=== PATIENT | female | born 1965 | race Caucasian/White ===

== ENCOUNTER 2020-07-28 12:55 | Inpatient (IN) | payer MEDICARE, OTHER ==
[~2020-07-28] VITALS: Ht 165.1 cm; Wt 83.9 kg
--- NOTE | 2020-07-28 13:25 | NUR ---
RN-CO: Admitted a 55 year old female from [facility] in [facility]. Patient looks older than stated age. Per hold, patient was walking in the neighborhood, yelling and screaming and agitated. Upon arrival in the ER , she has a flight of ideas,was tangential and delusional about the president. Upon face to face interview with the patient, she stated that she is not suicidal but depressed. She stated she has visual hallucinations and auditory hallucinations like "humming birds." She is disorganized and has flight of ideas and the refused to answer most of the questions. However is alert and oriented x3-4. Her skin is intact, patient's rights was discussed to her and booklet was given. She said she is tired, closed her eyes and pretend she is sleeping. Dr Valencia was notified and gave admitting orders. Patient refused FLU and PNA vaccine.
[2020-07-28] MEDS ORDERED: MAGNESIUM HYDROXIDE 30 ML UDC PO PRN (13:30)
[2020-07-28] MEDS ORDERED: METF-442 PO (13:33)
[2020-07-28] MEDS ORDERED: INSU100V9 SQ (13:34)
[2020-07-28] MEDS: LORAZEPAM 0.5 MG TABLET PO PRN (14:47)
--- NOTE | 2020-07-28 15:20 | NUR ---
RN-CO: Patient was seen and examined by Dr Ortega and he said he will reconcile home meds.
[2020-07-28 16:00] VITALS: BP 118/60
[2020-07-28] MEDS ORDERED: BLOOD SUGAR DIAGNOSTIC 1 EACH STRIP IN ONE (16:30)
[2020-07-28] MEDS ORDERED: DEXTROSE 50%-WATER 50 ML DISP.SYRIN IV PRN (16:30)
[2020-07-28] MEDS: METFORMIN 500 MG TABLET PO SCH (16:46)
[2020-07-28] MEDS: BLOOD SUGAR DIAGNOSTIC 1 EACH STRIP IN SCH ×2 (17:30→22:00)
[2020-07-28 20:00] VITALS: BP 136/66
[2020-07-29] MEDS: BLOOD SUGAR DIAGNOSTIC 1 EACH STRIP IN SCH ×4 (07:30→21:09)
--- NOTE | 2020-07-29 07:41 | NUR ---
GPS RN NOTES PATIENT ASLEEP AND DOES NOT WANT TO BE TOUCHED. SHE REFUSES ACCU-CHECK AT THIS TIME.
[2020-07-29 08:00] VITALS: BP 144/91
[2020-07-29] MEDS: METFORMIN 500 MG TABLET PO SCH ×2 (08:47→16:28)
[2020-07-29] MEDS: INSULIN REGULAR, HUMAN 100 UNIT/ML 3 ML VIAL SQ PRN ×2 (12:07→21:10)
[2020-07-29] MEDS: BENZTROPINE MESYLATE (1 MG) 1 MG TABLET PO SCH ×2 (13:25→20:19)
[2020-07-29] MEDS: HALOPERIDOL 5 MG TABLET PO SCH ×2 (13:56→20:18)
[2020-07-29] MEDS: LORAZEPAM 0.5 MG TABLET PO PRN (14:06)
--- NOTE | 2020-07-29 14:06 | NUR ---
GPS RN NOTES PATIENT RESTLESS, AGITATED. PRN ATIVAN GIVEN.
[2020-07-29 16:00] VITALS: BP 143/76
--- NOTE | 2020-07-29 16:59 | NUR ---
GPS RN NOTES PATIENT REFUSES INSULIN ANYTHING BELOW 150. 1700 ACCU-CHECK WITH BS 133.
--- NOTE | 2020-07-29 18:34 | NUR ---
GPS RN NOTES PATIENT RESTING IN BED
--- NOTE | 2020-07-29 19:25 | NUR ---
RN NOTES, PATIENT IN BED ASLEEP, AROUSES TO VERBAL STIMULI, NO DISTRESS/DISRUPTIVE BEHAVIOR NOTED, WILL CONTINUE TO MONITOR CLOSELY.
[2020-07-29 20:00] VITALS: BP 127/61
--- NOTE | 2020-07-29 22:12 | NUR ---
RN NOTES, INFORMED PHILIP THAT PATIENT WITH EPISODES OF WATERY DIARRHEA, AND PATIENT REQUESTING MEDICATION, PER PHILIP TO COLLECT STOOL FOR C-DIFF BEFORE, AND IF NEGATIVE THEN WE CAN START IMODIUM FOR DIARRHEA, WILL COLLECT IF PATIENT WITH ANOTHER BOWEL MOVEMENT.
[2020-07-30] MEDS: ACETAMINOPHEN 325 MG TABLET PO PRN (00:54)
[2020-07-30] MEDS: TEMAZEPAM 7.5 MG CAPSULE PO PRN ×2 (01:44→21:28)
--- NOTE | 2020-07-30 06:43 | NUR ---
RN NOTES, PT IN ROOM AT THIS TIME, REFUSED BLOOD DRAWN AT THIS TIME, OTHERWISE NO SIGNIFICANT CHANGE IN CONDITION DURING MY SHIFT, WILL ENDORSE XONTINUITY OF CARE TO ONCOMING NURSE.
[2020-07-30] MEDS: BLOOD SUGAR DIAGNOSTIC 1 EACH STRIP IN SCH ×4 (07:25→21:43)
[2020-07-30 08:00] VITALS: BP 155/77
[2020-07-30] MEDS: BENZTROPINE MESYLATE (1 MG) 1 MG TABLET PO SCH ×2 (08:13→21:28)
[2020-07-30] MEDS: HALOPERIDOL 5 MG TABLET PO SCH ×2 (08:13→21:36)
[2020-07-30] MEDS: METFORMIN 500 MG TABLET PO SCH ×2 (08:13→17:00)
[2020-07-30] MEDS: LORAZEPAM 0.5 MG TABLET PO PRN (09:54)
[2020-07-30 16:00] VITALS: BP 151/90
--- NOTE | 2020-07-30 16:16 | NUR ---
GPS HIGH SCALER: NOTES REFUSED BLOOD DRAW.
[2020-07-30 20:28] VITALS: BP 136/93
[2020-07-30] MEDS: INSULIN REGULAR, HUMAN 100 UNIT/ML 3 ML VIAL SQ PRN (21:48)
--- NOTE | 2020-07-31 06:54 | NUR ---
RN NOTES, REFUSED BLOOD DRAWN AT THIS TIME, PATIENT AWAKE MOST OF THE NIGHT, .RESTORIL GIVEN LAST NIGHT, NOT THAT MUCH EFFECT, PATIENT CONTINUE TALKING, LAUGHING AND SINGING, OTHERWISE NO CHANGE IN CONDITION, WILL ENDORSE CONTINUITY OF CARE TO ONCOMING NURSE,.
[2020-07-31 08:00] VITALS: BP 147/96
[2020-07-31] MEDS: BLOOD SUGAR DIAGNOSTIC 1 EACH STRIP IN SCH ×4 (08:18→22:53)
[2020-07-31] MEDS: HALOPERIDOL 5 MG TABLET PO SCH ×2 (08:41→21:24)
[2020-07-31] MEDS: BENZTROPINE MESYLATE (1 MG) 1 MG TABLET PO SCH ×2 (08:41→21:23)
[2020-07-31] MEDS: METFORMIN 500 MG TABLET PO SCH ×2 (08:42→17:20)
[2020-07-31] MEDS: INSULIN REGULAR, HUMAN 100 UNIT/ML 3 ML VIAL SQ PRN (08:45)
--- NOTE | 2020-07-31 12:11 | NUR ---
ACCUCHECK WAS DONE. BS 160 MG/DL. PT REFUSED INSULIN COVERAGE. WILL CONTINUE TO MONITOR FOR SAFETY.
[2020-07-31 16:00] VITALS: BP 130/86
--- NOTE | 2020-07-31 16:36 | NUR ---
Point of Contact: SANIYA called Grace ([phone]) as she was listed on the pts face sheet. Grace stated that she has a board and care that the pt used to reside in for years in the [facility]. She stated that she knows the pt well and that she is concerned about her hospitalization. She stated that she would like to be involved and would like her to be discharged to her care if a locked care home facility cannot be secured. SANIYA stated that she will keep her updated.
--- NOTE | 2020-07-31 17:11 | NUR ---
Initial Discharge Plan: Pt currently is homeless and will require placement in a locked facility. SW will work with the pt and the pts MD regarding appropriate discharge planning. SW will form a safe and proper discharge plan.
--- NOTE | 2020-07-31 17:21 | NUR ---
ACCUCHECK WAS DONE. BS 148 MG/DL. PT REFUSED INSULIN COVERAGE. WILL CONTINUE TO MONITOR FOR SAFETY.
[2020-07-31 20:03] VITALS: BP 132/82
[2020-07-31] MEDS: TEMAZEPAM 7.5 MG CAPSULE PO PRN (22:23)
[2020-08-01 08:00] VITALS: BP 139/79
[2020-08-01] MEDS: BLOOD SUGAR DIAGNOSTIC 1 EACH STRIP IN SCH ×4 (08:14→21:39)
[2020-08-01] MEDS: INSULIN REGULAR, HUMAN 100 UNIT/ML 3 ML VIAL SQ PRN (08:17)
[2020-08-01] MEDS: BENZTROPINE MESYLATE (1 MG) 1 MG TABLET PO SCH ×2 (08:30→21:25)
[2020-08-01] MEDS: METFORMIN 500 MG TABLET PO SCH ×2 (08:30→16:34)
[2020-08-01] MEDS: HALOPERIDOL 5 MG TABLET PO SCH ×3 (08:30→21:25)
[2020-08-01] MEDS: LORAZEPAM 0.5 MG TABLET PO PRN ×2 (08:32→16:34)
[2020-08-01] MEDS: ACETAMINOPHEN 325 MG TABLET PO PRN ×2 (08:33→16:34)
--- NOTE | 2020-08-01 11:51 | NUR ---
PT SLEEPING AND REFUSED TO HAVE BLOOD SUGAR CHECK.
[2020-08-01 16:00] VITALS: BP 127/75
--- NOTE | 2020-08-01 19:30 | NUR ---
GPS RN NOTE, RECEIVED PATIENT AWAKE AND IN BED, NO S/S OR COMPLAINTS OF PAIN AT THIS TIME. PATIENT IS DISPLAYING NO S/S OF APPARENT DISTRESS AT THIS TIME. PATIENT BREATHING IS UNLABORED WITH EQUAL RISE AND FALL OF THE CHEST. PATIENT IS ALERT AND ORIENTED X 2 ON ROOM AIR. PATIENT IS COMPLIANT WITH MEDICATIONS, ANXIOUS AT TIMES, LAUGHING UNCONTROLLABLY WHILE RESPONDING TO INTERNAL STIMULI, AND UNCOOPERATIVE. PATIENT DENIES SUICIDAL AND HOMICIDAL IDEATIONS AT THIS TIME. PATIENT ASSISTED WITH TURNING AND REPOSITIONING Q2HR AND PRN FOR COMFORT AND CIRCULATION. PATIENT HAS NO NEEDS AT THIS TIME. PATIENT EDUCATED ON THE USE OF THE CALL ALMODOVAR. PATIENT BED SIDE RAILS UP X 2 FOR SAFETY. PATIENT BED IS LOCKED, LOW, WITH BED ALARM ON. WILL CONTINUE TO MONITOR THIS PATIENT Q15 MINUTES WITH THE HELP OF STAFF TO MAINTAIN SAFETY.
[2020-08-01 20:45] VITALS: BP 142/59
--- NOTE | 2020-08-01 21:39 | NUR ---
GPS RN NOTE, PATIENT REFUSED ACCU CHECK. OFFERED TO PERFORM ACCU CHECK THREE TIMES AND STILL PATIENT REFUSED STATING, " I REFUSE AND I DON'T NEED IT ". EDUCATED PATIENT ON THE RISKS AND BENEFITS OF CHECKING BLOOD SUGAR. WILL CONTINUE TO MONITOR THIS PATIENT WITH THE HELP OF STAFF.
[2020-08-02] MEDS: LORAZEPAM 0.5 MG TABLET PO PRN ×2 (03:22→19:39)
--- NOTE | 2020-08-02 03:22 | NUR ---
GPS RN NOTE, PATIENT HAS A COMPLAINT OF FEELING ANXIOUS AND IS REQUESTING ATIVAN AT THIS TIME. PATIENT VITAL SIGNS ARE STABLE. GAVE ATIVAN 0.5MG PO Q6HR PRN ORDERED. WILL REASSESS FOR ANXIETY AND I WILL CONTINUE TO MONITOR THIS PATIENT WITH THE HELP OF STAFF.
[2020-08-02] MEDS: BLOOD SUGAR DIAGNOSTIC 1 EACH STRIP IN SCH ×4 (07:30→21:47)
[2020-08-02 08:00] VITALS: BP 120/61
[2020-08-02] MEDS: HALOPERIDOL 5 MG TABLET PO SCH ×3 (08:00→21:38)
[2020-08-02] MEDS: BENZTROPINE MESYLATE (1 MG) 1 MG TABLET PO SCH ×2 (08:24→20:03)
[2020-08-02] MEDS: METFORMIN 500 MG TABLET PO SCH ×2 (08:24→17:03)
--- NOTE | 2020-08-02 08:31 | NUR ---
GPS RN NOTES PATIENT REFUSED ALL HER MORNING MEDS AND ACCU-CHECK. OFFERED A FEW TIMES; PATIENT SCREAMING SHE HAS THE RIGHT TO REFUSE AND IF SHE HAS TO TAKE A SHOT SHE WILL BUT SHE WILL NOT TAKE HER MEDS. EDUCATED PATIENT ON THE RISKS AND BENEFITS OF NOT TAKING HER MEDS. WILL CONTINUE TO MONITOR PATIENT.
--- NOTE | 2020-08-02 11:31 | NUR ---
Probable Cause Hearing: Pts [phone] hold was upheld for grave disability.
[2020-08-02] MEDS: OXCARBAZEPINE 150 MG TABLET PO SCH ×2 (14:35→17:03)
[2020-08-02 16:00] VITALS: BP 127/72
[2020-08-02 20:28] VITALS: BP 136/76
--- NOTE | 2020-08-03 06:18 | NUR ---
GPS RN CLOSING NOTES: PATIENT LAYING ON BED, AWAKE, A/O X2. SLEPT 4 HR THIS SHIFT. MEDICATION COMPLIANT. NO S/S OF DISTRESS. RESPIRATION EVEN AND UNLABORED WITH EQUAL RISE AND FALL OF THE CHEST ON ROOM AIR. SAFETY PRECAUTION MAINTAINED, BED IN LOWEST POSITION AND LOCKED. Q15 MINUTES SAFETY ROUND CONTINUED. ALL PATIENT CARE NEEDS MET ANTICIPATED. WILL CONTINUE TO MONITOR PATIENT FOR MOOD, BEHAVIOR AND SAFETY AND ENDORSE TO AM SHIFT.
[2020-08-03 08:00] VITALS: BP 134/73
[2020-08-03] MEDS: BLOOD SUGAR DIAGNOSTIC 1 EACH STRIP IN SCH ×4 (08:13→21:20)
[2020-08-03] MEDS: METFORMIN 500 MG TABLET PO SCH ×2 (08:38→17:45)
[2020-08-03] MEDS: BENZTROPINE MESYLATE (1 MG) 1 MG TABLET PO SCH ×2 (08:38→21:13)
[2020-08-03] MEDS: HALOPERIDOL 5 MG TABLET PO SCH ×3 (08:38→21:13)
[2020-08-03] MEDS: OXCARBAZEPINE 150 MG TABLET PO SCH ×3 (08:38→17:45)
[2020-08-03] MEDS: LORAZEPAM 0.5 MG TABLET PO PRN ×2 (08:58→15:39)
--- NOTE | 2020-08-03 08:58 | NUR ---
PATIENT GIVEN ATIVAN PO DUE TO RESTLESSNESS, AGITATION, AND RUNNING AROUND THE UNIT
[2020-08-03 12:00] LABS: BILIRUBIN,URINE NEGATIVE (NEGATIVE); COLOR,URINE YELLOW (YELLOW); LEUKOCYTE ESTERASE ,URINE NEGATIVE (NEGATIVE); NITRITE, URINE NEGATIVE (NEGATIVE); PROTEIN,URINE NEGATIVE (NEGATIVE); UGLUCOSE NEGATIVE (NEGATIVE); UROBILINOGEN,URINE 0.2 EU/dL (0.2)
[2020-08-03 12:26] LABS: BACTERIA,URINE Few /HPF (None Seen); RBC,URINE NONE SEEN /HPF (0-2); SQUAMOUS EPITHELIAL CELL,UR Many /HPF (None Seen); URINE AMORPHOUS URATE Moderate /HPF (None Seen); WBC,URINE 0-2 /HPF (0-3)
--- NOTE | 2020-08-03 12:49 | NUR ---
PT BS CHECKED AT 155, PATIENT REFUSES INSULIN COVERAGE
--- NOTE | 2020-08-03 15:39 | NUR ---
ATIVAN 0.5 MG GIVEN FOR RESTLESSNESS, PT STATES SHE HAS ANXIETY; TO DRAW BLOOD FOR LABS WHEN PATIENT IS CALMER
[2020-08-03 16:00] VITALS: BP 149/93
--- NOTE | 2020-08-03 16:21 | NUR ---
PT REFUSED THE BLOOD DRAW, VERY AGITATED TOWARDS STAFF DESPITE ATIVAN GIVEN.
[2020-08-03 20:55] VITALS: BP 143/67
[2020-08-03] MEDS: TEMAZEPAM 7.5 MG CAPSULE PO PRN (22:19)
[2020-08-04] MEDS: BLOOD SUGAR DIAGNOSTIC 1 EACH STRIP IN SCH ×4 (07:32→21:31)
[2020-08-04] MEDS: INSULIN REGULAR, HUMAN 100 UNIT/ML 3 ML VIAL SQ PRN ×3 (07:33→17:14)
[2020-08-04 08:00] VITALS: BP 122/85
[2020-08-04] MEDS: METFORMIN 500 MG TABLET PO SCH ×2 (08:07→17:10)
[2020-08-04] MEDS: BENZTROPINE MESYLATE (1 MG) 1 MG TABLET PO SCH ×2 (08:07→21:20)
[2020-08-04] MEDS: OXCARBAZEPINE 150 MG TABLET PO SCH ×3 (08:07→17:10)
[2020-08-04] MEDS: HALOPERIDOL 5 MG TABLET PO SCH ×3 (08:07→21:20)
[2020-08-04 16:00] VITALS: BP 117/56
--- NOTE | 2020-08-04 17:14 | NUR ---
RN NOTES PT NOTED WITH BLOOD SUGAR OF 178MG/DL. REFUSED REGULAR INSULIN COVERAGE STATED "IT'S NOT HIGH ENOUGH FOR ME TO GET INSULIN VIA SQ. WILL CONTINUE TO MONITOR.
[2020-08-04 19:58] VITALS: BP 134/66
[2020-08-05] MEDS: TEMAZEPAM 7.5 MG CAPSULE PO PRN (01:45)
[2020-08-05] MEDS: BLOOD SUGAR DIAGNOSTIC 1 EACH STRIP IN SCH ×4 (07:30→22:00)
[2020-08-05 08:00] VITALS: BP 122/58
[2020-08-05] MEDS: METFORMIN 500 MG TABLET PO SCH ×2 (08:53→17:20)
[2020-08-05] MEDS: HALOPERIDOL 5 MG TABLET PO SCH ×3 (08:54→21:15)
[2020-08-05] MEDS: BENZTROPINE MESYLATE (1 MG) 1 MG TABLET PO SCH ×2 (08:54→21:15)
[2020-08-05] MEDS: OXCARBAZEPINE 150 MG TABLET PO SCH ×3 (08:54→17:20)
--- NOTE | 2020-08-05 14:23 | NUR ---
SNF Referral: SANIYA faxed a referral to [facility] with attn to DHAVAL and Dayron to the fax number: [phone].
[2020-08-05 16:00] VITALS: BP 129/84
--- NOTE | 2020-08-05 18:39 | NUR ---
RN NOTE PATIENT UP AND OUT OF BED FOR MOST OF THE DAY. PATIENT SOCIALIZING AND ENGAGING IN GROUP ACTIVITIES. PATIENT WITH S/S OF MANIC EPISODE. PATIENT EATING 100% OF HER MEALS. PATIENT WITH NO S/S OF HARM TO SELF OR OTHERS. END RN NOTE. BN
[2020-08-05] MEDS: INSULIN REGULAR, HUMAN 100 UNIT/ML 3 ML VIAL SQ PRN (19:26)
[2020-08-05 20:01] VITALS: BP 133/73
[2020-08-06] MEDS: LORAZEPAM 0.5 MG TABLET PO PRN (05:44)
[2020-08-06] MEDS: BLOOD SUGAR DIAGNOSTIC 1 EACH STRIP IN SCH ×4 (07:30→21:18)
[2020-08-06 08:00] VITALS: BP 120/58
--- NOTE | 2020-08-06 08:10 | NUR ---
PT AWAKE AND WALKING-BLOOD SUGAR DONE-PT REFUSES COVERAGE-MEDS TAKEN
[2020-08-06] MEDS: BENZTROPINE MESYLATE (1 MG) 1 MG TABLET PO SCH ×2 (09:41→21:16)
[2020-08-06] MEDS: METFORMIN 500 MG TABLET PO SCH ×2 (09:41→16:35)
[2020-08-06] MEDS: HALOPERIDOL 5 MG TABLET PO SCH ×3 (09:42→21:16)
[2020-08-06] MEDS: OXCARBAZEPINE 150 MG TABLET PO SCH ×2 (09:42→16:35)
--- NOTE | 2020-08-06 12:00 | NUR ---
PT REFUSED TO HAVE BLOOD SUGAR CHECKED-IMPLIES THAT SHE'S BEING PERSECUTED AND THAT SHE KNOWS RIGHTS-RN LISTEN AND CALMLYADVISED NOT A PROBLEM-PT ALREADY AT LUNCH
[2020-08-06 16:00] VITALS: BP 145/87
--- NOTE | 2020-08-06 18:08 | NUR ---
pt still refuses to have blood sugar done- but does take medications-increased calmness-discussed need for having sugar done-still refuses
[2020-08-06 20:00] VITALS: BP 104/50
--- NOTE | 2020-08-06 21:55 | NUR ---
PATIENT RESTING IN BED, REFUSED BLOOD SUGAR CHECK STATES IT MAKES NO DIFFERENCE WHETHER IT IS HIGH OR LOW. PATIENT EDUCATED ON RISKS ASSOCIATED WITH NONCOMPLIANCE WITH DIABETIC MONITORING, STATES IT DOES NOT APPLY TO HER. PT COMPLIANT WITH SCHEDULED PO MEDICATIONS. WILL CONTINUE MONITORING CLOSELY.
[2020-08-06] MEDS ORDERED: AMLO-213 PO (22:40)
[2020-08-07] MEDS: MAG HYDROX/AL HYDROX/SIMETH 30 ML UDC PO PRN (02:36)
[2020-08-07] MEDS: BLOOD SUGAR DIAGNOSTIC 1 EACH STRIP IN SCH ×4 (07:53→21:52)
[2020-08-07] MEDS: INSULIN REGULAR, HUMAN 100 UNIT/ML 3 ML VIAL SQ PRN (07:53)
[2020-08-07 08:00] VITALS: BP 129/60
--- NOTE | 2020-08-07 08:00 | NUR ---
Blood sugar done -pt refuses to get insulin shot for sugar of 225-states she's not an insulin dependant diabetic and takes metformin
[2020-08-07] MEDS: METFORMIN 500 MG TABLET PO SCH ×2 (08:08→17:09)
[2020-08-07] MEDS: HALOPERIDOL 5 MG TABLET PO SCH ×3 (08:08→22:13)
[2020-08-07] MEDS: BENZTROPINE MESYLATE (1 MG) 1 MG TABLET PO SCH ×2 (08:08→21:00)
[2020-08-07] MEDS: OXCARBAZEPINE 150 MG TABLET PO SCH ×3 (08:08→17:09)
[2020-08-07] MEDS: LORAZEPAM 0.5 MG TABLET PO PRN (11:43)
[2020-08-07 16:00] VITALS: BP 105/61
--- NOTE | 2020-08-07 19:32 | NUR ---
PT RECEIVED IN BED AND APPEARS TO BE SLEEPING. RESPIRATIONS EVEN AND UNLABORED. NO S/S OF ACUTE DISTRESS. WILL CONTINUE TO MONITOR.
[2020-08-07 21:13] VITALS: BP 152/75
--- NOTE | 2020-08-08 07:02 | NUR ---
PT WAS VERY TALKATIVE AND AGREED TO ACCU CHECK. NO C/O PAIN. DENIES SI AND HI IDEATIONS
[2020-08-08] MEDS: BLOOD SUGAR DIAGNOSTIC 1 EACH STRIP IN SCH ×4 (07:30→22:00)
[2020-08-08 08:00] VITALS: BP 124/75
[2020-08-08] MEDS: OXCARBAZEPINE 150 MG TABLET PO SCH ×3 (08:52→17:40)
[2020-08-08] MEDS: METFORMIN 500 MG TABLET PO SCH ×2 (08:53→17:40)
[2020-08-08] MEDS: HALOPERIDOL 5 MG TABLET PO SCH ×3 (08:53→22:03)
[2020-08-08] MEDS: BENZTROPINE MESYLATE (1 MG) 1 MG TABLET PO SCH ×2 (09:00→21:01)
--- NOTE | 2020-08-08 10:17 | NUR ---
SNF Contact: DHAVAL ([phone]) from [facility] contacted the SW and stated that the pt was accepted to their facility.
--- NOTE | 2020-08-08 13:18 | NUR ---
Substance Abuse Intervention: SW made a third attempt and conducted a substance abuse intervention with the pt due to pts methamphetamine use.
[2020-08-08 16:00] VITALS: BP 120/58
[2020-08-08 20:47] VITALS: BP 117/61
--- NOTE | 2020-08-08 22:16 | NUR ---
GPS RN NOTE, REFUSED ACCU CHECK PATIENT REFUSED ACCU CHECK. OFFERED TO PERFORM ACCU CHECK THREE TIMES AND STILL PATIENT REFUSED ,EDUCATED PATIENT ON THE RISKS AND BENEFITS OF CHECKING BLOOD SUGAR. WILL CONTINUE TO MONITOR .
[2020-08-09] MEDS: BLOOD SUGAR DIAGNOSTIC 1 EACH STRIP IN SCH ×4 (07:30→22:00)
[2020-08-09 08:00] VITALS: BP 112/61
[2020-08-09] MEDS: OXCARBAZEPINE 150 MG TABLET PO SCH ×3 (09:43→16:48)
[2020-08-09] MEDS: BENZTROPINE MESYLATE (1 MG) 1 MG TABLET PO SCH ×2 (09:43→21:43)
[2020-08-09] MEDS: HALOPERIDOL 5 MG TABLET PO SCH ×3 (09:43→22:16)
[2020-08-09] MEDS: METFORMIN 500 MG TABLET PO SCH ×2 (09:44→16:48)
--- NOTE | 2020-08-09 15:15 | NUR ---
Individual Intervention: SW met with the pt in the hallway and informed her that she will be discharged on Wednesday to a nursing facility. Pt stated that she did not want to go to a nursing facility and stated that she wanted to go home. SW informed her that she is homeless and asked if that information is wrong and if she has a home. Pt was not able to provide an appropriate answer. SW will make another attempt to speak to the pt about her discharge on Wednesday.
[2020-08-09 16:00] VITALS: BP 126/99
--- NOTE | 2020-08-09 17:20 | NUR ---
RN NOTE PATIENT UP AND OUT OF BED FOR MOST OF THE DAY. PATIENT SOCIALIZING AND ENGAGING IN GROUP ACTIVITIES. PATIENT WITH S/S OF MANIC EPISODES, PATIENT APPEARED TO HAVE MULTIPLE HALLUCINATIONS THROUGHOUT THE DAY. PATIENT EATING 100% OF HER MEALS. PATIENT WITH NO S/S OF HARM TO SELF OR OTHERS. END RN NOTE. BN
[2020-08-09 20:00] VITALS: BP 139/81
[2020-08-09 20:36] VITALS: BP 139/81
--- NOTE | 2020-08-09 22:17 | NUR ---
GPS RN NOTE: REFUSED ACCU CHECK at 2200 PATIENT REFUSED ACCU CHECK THREE TIMES. EDUCATED PATIENT ON THE RISKS AND BENEFITS OF CHECKING BLOOD SUGAR BUT PATIENT IS PARANOID, TALKING TO HERSELF & STATED," I DON'T WANT TO TAKE A CHANCE, I REFUSE YOU TO GET MY BLOOD SUGAR CHECKED. WILL CONTINUE TO MONITOR.
[2020-08-10] MEDS: TEMAZEPAM 7.5 MG CAPSULE PO PRN (01:54)
--- NOTE | 2020-08-10 01:57 | NUR ---
RN NOTE: INSOMNIA PATIENT STATED THAT SHE IS UNABLE TO SLEEP AT THIS TIME & REQUESTED TO GET SLEEPING MEDICINE. PRN RESTORIL 7.5 MG 1 CAP PO GIVEN. WILL CONTINUE TO MONITOR.
--- NOTE | 2020-08-10 07:30 | NUR ---
RN NOTES PT AWAKE, WALKS ALONG THE HALLWAY WITH STEADY GAIT, TALKS TO HERSELF, COMPLIANT WITH MEDS, WILL CONTINUE TO MONITOR.
[2020-08-10] MEDS: BLOOD SUGAR DIAGNOSTIC 1 EACH STRIP IN SCH ×4 (07:50→21:16)
[2020-08-10] MEDS: BENZTROPINE MESYLATE (1 MG) 1 MG TABLET PO SCH ×2 (07:56→21:12)
[2020-08-10] MEDS: MAG HYDROX/AL HYDROX/SIMETH 30 ML UDC PO PRN (07:56)
[2020-08-10] MEDS: METFORMIN 500 MG TABLET PO SCH ×2 (07:57→16:09)
[2020-08-10] MEDS: HALOPERIDOL 5 MG TABLET PO SCH ×3 (07:57→21:12)
[2020-08-10] MEDS: OXCARBAZEPINE 150 MG TABLET PO SCH ×3 (07:59→16:09)
[2020-08-10 08:00] VITALS: BP 142/79
[2020-08-10 16:00] VITALS: BP 140/80
--- NOTE | 2020-08-10 18:10 | NUR ---
RN NOTES PT IN HER ROOM, AWAKE, ALERT AND VERBALLY RESPONSIVE, WITH EPISODES OF TALKING TO HERSELF AND SINGING, COMPLIANT WITH MEDS, WALKS ALONG THE HALLWAY AT TIMES, NOTED WITH GOOD APPETITE, BS CHECKED, NO S/S OF HYPO/HYPERGLYCEMIA, NEEDS ATTENDED.
[2020-08-10 20:31] VITALS: BP 122/59
--- NOTE | 2020-08-10 22:02 | NUR ---
PT RECEIVED ALERT AND ORIENTED X 3, ON ROOM AIR, RESTING IN HER BED, DENIES ANY PAIN AT THIS TIME, BREATHING IS UNLABORED. PT DENIES ANY SI/HI, HAS OCCASIONAL AUDITORY HALLUCINATIONS. PT IS GUARDED, COOPERATIVE, COMPLIANT WITH MEDICATIONS. PT HAS NO NEEDS AT THIS TIME. SIDE RAILS UP X2 FOR SAFETY, BED LOCKED AND IN LOWEST POSITION. WILL CONTINUE TO MONITOR Q15 MIN WITH THE HELP OF STAFF TO MAINTAIN SAFETY.
[2020-08-11 08:00] VITALS: BP 116/58
[2020-08-11] MEDS: HALOPERIDOL 5 MG TABLET PO SCH ×3 (08:31→21:03)
[2020-08-11] MEDS: METFORMIN 500 MG TABLET PO SCH ×2 (08:31→16:52)
[2020-08-11] MEDS: BENZTROPINE MESYLATE (1 MG) 1 MG TABLET PO SCH ×2 (08:32→20:50)
[2020-08-11] MEDS: OXCARBAZEPINE 150 MG TABLET PO SCH ×3 (08:32→16:52)
[2020-08-11] MEDS: BLOOD SUGAR DIAGNOSTIC 1 EACH STRIP IN SCH ×4 (08:57→21:04)
[2020-08-11] MEDS: INSULIN REGULAR, HUMAN 100 UNIT/ML 3 ML VIAL SQ PRN (12:40)
[2020-08-11 16:00] VITALS: BP 156/78
[2020-08-11 21:00] VITALS: BP 140/82
[2020-08-11] MEDS: ACETAMINOPHEN 325 MG TABLET PO PRN (22:27)
[2020-08-12] MEDS: BENZTROPINE MESYLATE (1 MG) 1 MG TABLET PO SCH ×2 (00:05→08:42)
[2020-08-12] MEDS: BLOOD SUGAR DIAGNOSTIC 1 EACH STRIP IN SCH ×4 (00:20→17:17)
[2020-08-12 08:00] VITALS: BP_SYST 100; BP_SYST 125; BP_DIAS 55; BP_DIAS 81
[2020-08-12] MEDS: METFORMIN 500 MG TABLET PO SCH ×2 (08:42→17:16)
[2020-08-12] MEDS: HALOPERIDOL 5 MG TABLET PO SCH ×2 (08:43→12:31)
[2020-08-12] MEDS: OXCARBAZEPINE 150 MG TABLET PO SCH ×3 (08:43→17:16)
[2020-08-12 16:00] VITALS: BP 100/55
[2020-08-12] MEDS: OXCARBAZEPINE 150 MG TABLET PO ONE ×2 (19:03→19:07)
--- NOTE | 2020-08-12 19:30 | NUR ---
PT RECEIVED IN BED, APPEARS TO BE SLEEPING. RESPIRATIONS EVEN AND UNLABORED. NO S/S OF ACUTE DISTRESS. WILL CONTINUE TO MONITOR.
[2020-08-12 20:11] VITALS: BP 103/46
[2020-08-13] MEDS: HALOPERIDOL 5 MG TABLET PO SCH ×3 (00:13→13:58)
--- NOTE | 2020-08-13 00:28 | NUR ---
PT IS AWAKE AND AGREES TO TAKE MEDS. HALDOL GIVEN ORDERED. BLOOD SUGAR 131. DENIES PAIN AND DISCOMFORT.
--- NOTE | 2020-08-13 06:53 | NUR ---
PT APPEARS TO BE SLEEPING IN THE BED MOST OF THE NIGHT AND NOW. RESPIRATIONS EVEN AND UNLABORED. NO S/S OF ACUTE DISTRESS
[2020-08-13] MEDS: BLOOD SUGAR DIAGNOSTIC 1 EACH STRIP IN SCH ×2 (07:30→12:00)
[2020-08-13 08:00] VITALS: BP 121/53
[2020-08-13] MEDS: METFORMIN 500 MG TABLET PO SCH (08:35)
[2020-08-13] MEDS: OXCARBAZEPINE 150 MG TABLET PO SCH ×2 (08:35→13:58)
[2020-08-13] MEDS: BENZTROPINE MESYLATE (1 MG) 1 MG TABLET PO SCH (08:36)
--- NOTE | 2020-08-13 12:17 | NUR ---
Discharge Note: Pt will be discharged to [facility] (SNF) located at [address] [place] [id number]; ([phone]). Pt will be transported via [facility] at 4PM. does not have anyone to inform about the pts discharge. Upon discharge, the pt appears to be in a euthymic mood and presented with a congruent affect. Pt appears to be alert and oriented x4 (time, place, self and situation). Pt denies both suicidal and homicidal ideation. Pt appears to respond to internal stimuli and have auditory hallucinations. Pt appears to be ambulatory with an unsteady gait. Pt appears to be well groomed and appropriately dressed. SANIYA provided patient with the 2019 [facility] Program list. SW provided patient with a copy of the [facility] homeless directory which provides information on locations for hot meals, sack lunches, food pantries, and showers. SANIYA provided an additional list of mental health clinics: [facility] [address] [place] [address] ([phone]); [facility] [address] [place] [address] ([phone]); a list of medical clinics; [facility] [address] [facility] [address], [place]. [place], ; [facility] [address] [facility] [address], [place]. SANIYA Provided [facility] [address] [place] [address]: ([phone]). Patient was provided with a brief substance abuse intervention and referred to the following substance abuse programs: [facility] Substance Abuse Self-helpline ([phone]); [facility] [address] [place] [address] ([phone]); [facility] [address] [facility] [address] ([phone]); [facility] ([phone]); [facility] ([phone]); [facility] ([phone]); [facility] ([phone]). Pt will continue to be under the care of psychiatrist, Dr. Valencia, located at located at [address] [place] [address], [place] [address]; . Pt will be under the care of channel sales director, Dr. Cox, located at [address] [place] [address]; . Pts homeless waiver, choice of vendor form, and multidisciplinary exit care form were done, printed, signed, and given to the patient.
[2020-08-13 16:00] VITALS: BP 128/64
--- NOTE | 2020-08-13 16:35 | NUR ---
RN NURSE PATIENT DISCHARGED TO [facility] (SNF) IN STABLE CONDITION. PATIENT DENIES HI/SI AND AUDITORY AND VISUAL HALLUCINATIONS. PATIENT DISCHARGE TEACHINGS GIVEN. PATIENT VERBALIZED HER UNDERSTANDING OF THE TEACHINGS. END RN NOTE. BN
[2020-08-13] MEDS ORDERED: OXCARBAZEPINE 150 MG TABLET PO SCH (17:00)
== END 2020-08-13 16:20 | DRG 885 ==
LOC: GPS 12:55
PROVIDERS: ADMIT Psychiatry & Neurology Psychosomatic Medicine; ATTEND Internal Medicine
DX: F20.9 Schizophrenia, unspecified (principal); E11.65 Type 2 diabetes mellitus with hyperglycemia; F17.210 Nicotine dependence, cigarettes, uncomplicated; Z20.822 Contact with and (suspected) exposure to COVID-19; G31.84 Mild cognitive impairment of uncertain or unknown etiology; F29 Unspecified psychosis not due to a substance or known physiological condition; Z73.6 Limitation of activities due to disability; F15.10 Other stimulant abuse, uncomplicated; Z59.0 Homelessness; Z91.14 Patient's other noncompliance with medication regimen; Z91.81 History of falling; Z68.30 Body mass index [BMI] 30.0-30.9, adult; E66.9 Obesity, unspecified; F32.9 Major depressive disorder, single episode, unspecified; F41.9 Anxiety disorder, unspecified; Z79.4 Long term (current) use of insulin
CPT/HCPCS: 81001; 82962-TC; 87081-TC; J1815

== ENCOUNTER 2020-10-06 11:55 | Inpatient (IN) | payer MEDICARE, OTHER ==
[~2020-10-06] VITALS: Ht 167.6 cm; Wt 83.0 kg
[~2020-10-06 11:55] MED LIST: AMLO-213 PO; INSU100V9 SQ; METF-442 PO
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
[2020-10-06] MEDS ORDERED: BISA10SU11 RC (12:24)
[2020-10-06] MEDS ORDERED: HALO5TAB PO (12:24)
[2020-10-06] MEDS ORDERED: LORA-259 PO (12:24)
[2020-10-06] MEDS ORDERED: OXCA300T4 PO (12:24)
[2020-10-06] MEDS ORDERED: ACET-868 PO (12:24)
[2020-10-06] MEDS ORDERED: HALO10TA13 PO (12:24)
[2020-10-06] MEDS ORDERED: NA P133E RC (12:24)
[2020-10-06] MEDS ORDERED: MAGN400O6 PO (12:24)
[2020-10-06] MEDS ORDERED: OLANZAPINE 5 MG TABLET PO ONE (12:30)
[2020-10-06] MEDS ORDERED: BENZ2TAB7 PO (12:40)
[2020-10-06 12:41] LABS: BILIRUBIN,URINE NEGATIVE (NEGATIVE); COLOR,URINE YELLOW (YELLOW); LEUKOCYTE ESTERASE ,URINE NEGATIVE (NEGATIVE); NITRITE, URINE NEGATIVE (NEGATIVE); PH,URINE 6.5 (5.0-8.0); PROTEIN,URINE NEGATIVE (NEGATIVE); UGLUCOSE NEGATIVE (NEGATIVE); UROBILINOGEN,URINE 0.2 EU/dL (0.2)
[2020-10-06 12:42] LABS: BASOPHILS # (AUTO) 0.1 /CMM (0.0-0.2); BASOPHILS % (AUTO) 0.5 % (0.0-2.0); EOSINOPHILS % (AUTO) 2.5 % (0.0-6.0); HEMATOCRIT 41 % (33-45); HEMOGLOBIN 13.4 g/dL (11.5-14.8); LYMPHOCYTES # (AUTO) 2.2 /CMM (0.8-4.8); MEAN CORPUSCULAR HGB CONC 33 g/dl (31.0-36.0); MEAN CORPUSCULAR VOLUME 85 fL (82-100); MONOCYTES # (AUTO) 0.8 /CMM (0.1-1.30); MONOCYTES % (AUTO) 7.7 % (2.0-12.0); NEUTROPHILS # (AUTO) 6.7 /CMM (1.8-8.9); NEUTROPHILS % (AUTO) 67.3 % (43.0-81.0); PLATELET COUNT (AUTO) 466 /CMM (150-450); RED BLOOD CELL COUNT(AUTO) 4.76 MIL/uL (4.0-5.2); WHITE BLOOD COUNT (AUTO) 9.9 K/uL (4.3-11.0)
[2020-10-06 13:08] LABS: ALANINE AMINOTRANSFERASE 23 U/L (12-78); ALBUMIN 4.4 g/dL (3.4-5.0); ALCOHOL, BLOOD < 3 mg/dL (0-0); ALKALINE PHOSPHATASE 93 U/L (46-116); ASPARTATE AMINOTRANSFERASE 12 U/L (15-37); BILIRUBIN,DIRECT 0.1 mg/dL (0.0-0.2); BILIRUBIN,TOTAL 0.1 mg/dL (0.2-1.0); CALCIUM, SERUM 10.4 mg/dL (8.5-10.1); CARBON DIOXIDE 30 mmol/L (21-32); CHLORIDE 100 mmol/L (98-107); CREATININE 0.7 mg/dL (0.6-1.3); GLUCOSE 119 mg/dL (74-106); POTASSIUM 4.2 mmol/L (3.5-5.1); SODIUM SERUM 137 mmol/L (136-145); TOTAL PROTEIN, SERUM 8.7 g/dL (6.4-8.2); UREA NITROGEN, BLOOD 14 mg/dL (7-18)
[2020-10-06 13:19] LABS: ACETAMINOPHEN 0 ug/ml (10-30)
[2020-10-06] MEDS ORDERED: OLANZAPINE 5 MG TABLET ONE (13:39)
--- NOTE | 2020-10-06 15:45 | NUR ---
KEILY CALLED FOR PSYCH EVAL. NO ETA GIVEN
--- NOTE | 2020-10-06 16:48 | NUR ---
ROOM 220B
--- NOTE | 2020-10-06 18:30 | NUR ---
AMIE Eli at bedside fro psyche eval
--- NOTE | 2020-10-06 19:16 | NUR ---
PLACED ON HOLD AT 1850
--- NOTE | 2020-10-06 19:39 | NUR ---
REPORT GIVEN TO AMIE LAZO FOR CINDY
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
[2020-10-06] MEDS ORDERED: DEXTROSE 50%-WATER 50 ML DISP.SYRIN IV PRN (20:30)
[2020-10-06] MEDS ORDERED: ACETAMINOPHEN 325 MG TABLET PO PRN (21:00)
[2020-10-06] MEDS ORDERED: BLOOD SUGAR DIAGNOSTIC 1 EACH STRIP IN ONE (21:00)
[2020-10-06] MEDS ORDERED: MAG HYDROX/AL HYDROX/SIMETH 30 ML UDC PO PRN (21:00)
[2020-10-06] MEDS: BLOOD SUGAR DIAGNOSTIC 1 EACH STRIP IN SCH (22:00)
[2020-10-07 08:00] VITALS: BP 152/73
[2020-10-07] MEDS: BLOOD SUGAR DIAGNOSTIC 1 EACH STRIP IN SCH ×4 (08:47→21:49)
[2020-10-07] MEDS: INSULIN REGULAR, HUMAN 100 UNIT/ML 3 ML VIAL SQ PRN ×3 (12:13→21:51)
[2020-10-07] MEDS: MAGNESIUM HYDROXIDE 30 ML UDC PO PRN (12:40)
--- NOTE | 2020-10-07 15:32 | NUR ---
SNF Contact: SW contacted CJ ([phone]) from [facility] who stated that the pt can be accepted back once stable.
--- NOTE | 2020-10-07 15:32 | NUR ---
Initial Discharge Plan: Pt currently resides at [facility] located at [address] [place] [address]; ([phone]). Per pt, she would like to return. SW will work with the pt and the MD regarding appropriate discharge planning. SW will form a safe and proper discharge.
[2020-10-07 16:00] VITALS: BP 123/67
[2020-10-07] MEDS: BENZTROPINE MESYLATE (1 MG) 1 MG TABLET PO SCH (17:09)
[2020-10-07] MEDS: OXCARBAZEPINE 150 MG TABLET PO SCH (17:25)
[2020-10-07] MEDS: HALOPERIDOL 5 MG TABLET PO SCH ×2 (17:26→22:00)
[2020-10-07 21:18] VITALS: BP 137/97
[2020-10-08] MEDS: BLOOD SUGAR DIAGNOSTIC 1 EACH STRIP IN SCH ×4 (07:05→22:23)
[2020-10-08] MEDS: INSULIN REGULAR, HUMAN 100 UNIT/ML 3 ML VIAL SQ PRN (07:07)
[2020-10-08 08:00] VITALS: BP 137/75
[2020-10-08] MEDS: OXCARBAZEPINE 150 MG TABLET PO SCH ×3 (08:19→16:25)
[2020-10-08] MEDS: HALOPERIDOL 5 MG TABLET PO SCH ×3 (08:19→21:31)
[2020-10-08] MEDS: BENZTROPINE MESYLATE (1 MG) 1 MG TABLET PO SCH ×2 (08:19→16:25)
[2020-10-08] MEDS: MAGNESIUM HYDROXIDE 30 ML UDC PO PRN (12:49)
--- NOTE | 2020-10-08 12:49 | NUR ---
RN NOTES: PT. C/O CONSTIPATIONS , MOM 30 ML PO PRN GIVEN PER PT. REQUEST, WILL CONTINUE TO MONITOR .
[2020-10-08 16:00] VITALS: BP 155/92
[2020-10-08 20:00] VITALS: BP 132/80
[2020-10-08] MEDS: LORAZEPAM 0.5 MG TABLET PO PRN (20:12)
--- NOTE | 2020-10-08 20:14 | NUR ---
GPS RN NOTES: PATIENT IS RESTLESS, PACING HALLWAY, LAUGHING INAPPROPRIATELY, RESPONDING TO INTERNAL STIMULI, TALKING TO SELF. ATIVAN 0.5MG, 2TABS/1MG GIVEN PO PRN AT 2011. WILL CONTINUE TO MONITOR.
[2020-10-08] MEDS: TEMAZEPAM 7.5 MG CAPSULE PO PRN (22:25)
--- NOTE | 2020-10-08 22:25 | NUR ---
GPS RN NOTES: PT. REQUESTED SLEEP MED D/T INSOMNIA. RESTORIL 7.5MG/1TAB GIVEN PO PRN ORDERED AT 2225. WILL CONTINUE TO MONITOR.
--- NOTE | 2020-10-09 06:46 | NUR ---
GPS RN CLOSING NOTES: PATIENT IS LAYING COMFORTABLY IN BED SLEEPING. PATIENT SLEPT 6HRS THIS SHIFT. MED COMPLIANT THIS SHIFT. NO S/S OF DISTRESS. RESPIRATION EVEN AND UNLABORED WITH EQUAL RISE AND FALL OF THE CHEST ON ROOM AIR. ALL PATIENT CARE NEEDS HAVE BEEN MET ANTICIPATED. BED IN LOWEST POSITION AND LOCKED. WILL CONTINUE TO MONITOR FOR SAFETY, MOOD AND BEHAVIOR AND ENDORSE TO AM SHIFT.
[2020-10-09] MEDS: BLOOD SUGAR DIAGNOSTIC 1 EACH STRIP IN SCH ×4 (07:20→22:20)
[2020-10-09 08:00] VITALS: BP 139/77
[2020-10-09] MEDS: HALOPERIDOL 5 MG TABLET PO SCH ×3 (08:27→21:26)
[2020-10-09] MEDS: BENZTROPINE MESYLATE (1 MG) 1 MG TABLET PO SCH ×2 (08:27→16:36)
[2020-10-09] MEDS: OXCARBAZEPINE 150 MG TABLET PO SCH ×3 (08:27→16:36)
--- NOTE | 2020-10-09 09:00 | NUR ---
PT ALERT LAUGHING INAPPROPRIATELY, RESPONDING TO INTERNAL STIMULUS, +AH, +VH, GESTURING TO CARRERA AND OBVIOUSLY RESPONDING AND SPEAKING IN ROOM ALONE. PO INTAKE FAIR, MED COMPLIANT
[2020-10-09] MEDS: INSULIN REGULAR, HUMAN 100 UNIT/ML 3 ML VIAL SQ PRN (13:20)
[2020-10-09 16:00] VITALS: BP 154/86
--- NOTE | 2020-10-09 17:50 | NUR ---
RN NOTE- ACCU CHECK / BS- 163. PT REFUSING SSI
[2020-10-09] MEDS: LORAZEPAM 0.5 MG TABLET PO PRN (20:20)
--- NOTE | 2020-10-09 20:27 | NUR ---
GPS RN NOTES: PATIENT IS RESTLESS, ANXIOUS, PACING HALLWAY, LAUGHING INAPPROPRIATELY, RESPONDING TO INTERNAL STIMULI, TALKING TO SELF. ATIVAN 0.5MG, 2TABS/1MG GIVEN PO PRN AT 2019. WILL CONTINUE TO MONITOR.
[2020-10-09 20:28] VITALS: BP 154/90
[2020-10-09] MEDS: TEMAZEPAM 7.5 MG CAPSULE PO PRN (21:57)
--- NOTE | 2020-10-09 21:58 | NUR ---
GPS RN NOTES: PT. REQUESTED SLEEP MED D/T INSOMNIA. RESTORIL 7.5MG/1TAB GIVEN PO PRN ORDERED AT 2157 WILL CONTINUE TO MONITOR.
--- NOTE | 2020-10-10 06:39 | NUR ---
GPS RN CLOSING NOTES: PATIENT IS CURRENTLY SLEEPING COMFORTABLY. PATIENT SLEPT 5HRS THIS SHIFT. MED COMPLIANT THIS SHIFT. NO S/S OF DISTRESS. RESPIRATION EVEN AND UNLABORED WITH EQUAL RISE AND FALL OF THE CHEST ON ROOM AIR. ALL PATIENT CARE NEEDS HAVE BEEN MET ANTICIPATED. BED IN LOWEST POSITION AND LOCKED WITH SIDE RAILS UP X2. WILL CONTINUE TO MONITOR AND ENDORSE TO AM SHIFT
[2020-10-10] MEDS: BLOOD SUGAR DIAGNOSTIC 1 EACH STRIP IN SCH ×4 (07:30→21:30)
[2020-10-10 08:00] VITALS: BP 158/91
[2020-10-10] MEDS: OXCARBAZEPINE 150 MG TABLET PO SCH ×3 (08:34→16:26)
[2020-10-10] MEDS: HALOPERIDOL 5 MG TABLET PO SCH ×3 (08:34→21:27)
[2020-10-10] MEDS: BENZTROPINE MESYLATE (1 MG) 1 MG TABLET PO SCH ×2 (08:34→16:27)
[2020-10-10] MEDS: INSULIN REGULAR, HUMAN 100 UNIT/ML 3 ML VIAL SQ PRN (11:15)
--- NOTE | 2020-10-10 13:38 | NUR ---
Group Note: SW encouraged the pt to attend group therapy on 10/10/20 at 1pm regarding the topic of discharge planning and the pt refused to attend. Pt was unable to attend due to being disorganized, tangential, and manic.
[2020-10-10 16:00] VITALS: BP 136/72
--- NOTE | 2020-10-10 17:08 | NUR ---
RN-CO: PATIENT REFUSED BLOOD SUGAR CHECK , SHE STATED " I TOLD YOU, I AM OT DIABETIC." ENC 3X BUT GOT AGITATED TO ME.
[2020-10-10 19:48] VITALS: BP 126/52
[2020-10-10 20:00] VITALS: BP 126/52
--- NOTE | 2020-10-10 22:20 | NUR ---
RN NOTE PATIENT'S BLOOD SUGAR IS 128 MG/DL. NO SLIDING SCALE COVERAGE NEEDED AT THIS TIME. SNACKS OFFERED & TOLERATED WELL BY THE PATIENT.
[2020-10-11 08:00] VITALS: BP 126/63
[2020-10-11] MEDS: BLOOD SUGAR DIAGNOSTIC 1 EACH STRIP IN SCH ×4 (08:09→21:19)
[2020-10-11] MEDS: HALOPERIDOL 5 MG TABLET PO SCH (08:40)
[2020-10-11] MEDS: OXCARBAZEPINE 150 MG TABLET PO SCH ×3 (08:40→16:00)
[2020-10-11] MEDS: BENZTROPINE MESYLATE (1 MG) 1 MG TABLET PO SCH ×2 (08:40→16:00)
--- NOTE | 2020-10-11 09:35 | NUR ---
GPS/RN-NOTES PATIENT COMPLAIN THAT SHE HAD HARD OF SWALLOWING HALDOL PILLS FOR PREVIOUS DAYS,DR. SHEA AT BEDSIDE AND WITH VERBAL ORDER TO CHANGE HALDOL ORDERS TO HALDOL CONCENTRATED. NOTED AND CARRIED OUT.
[2020-10-11] MEDS: LORAZEPAM 0.5 MG TABLET PO PRN (10:27)
--- NOTE | 2020-10-11 10:28 | NUR ---
GPS/RN-NOTES NOTED PATIENT PACING IN AND OUT HER ROOM,HYPERVERBAL TALKING AND LAUGHING TO SELF. ATIVAN 1MG P.O GIVEN PRN ORDER. WILL CONT. MONITORING FOR SAFETY AND BEHAVIOR.
--- NOTE | 2020-10-11 11:30 | NUR ---
GPS/RN-NOTES PATIENT IN THE DAY ROOM WATCHING TV,CALM,NO ACUTE DISTRESS NOTED.
[2020-10-11] MEDS: INSULIN REGULAR, HUMAN 100 UNIT/ML 3 ML VIAL SQ PRN ×3 (12:16→21:24)
[2020-10-11 16:00] VITALS: BP 143/86
[2020-10-11] MEDS: HALOPERIDOL LACTATE 10 MG/5 ML UDC PO SCH ×2 (16:01→21:13)
[2020-10-11 20:02] VITALS: BP 130/80
[2020-10-11] MEDS: TEMAZEPAM 7.5 MG CAPSULE PO PRN (21:57)
--- NOTE | 2020-10-11 21:57 | NUR ---
GPS-RN NOTE: INSOMNIA PATIENT C/O INABILITY TO SLEEP. PRN RESTORIL 7.5MG PO GIVEN. WILL CONTINUE TO MONITOR.
[2020-10-12 08:00] VITALS: BP 125/76
[2020-10-12] MEDS: BLOOD SUGAR DIAGNOSTIC 1 EACH STRIP IN SCH ×4 (08:08→22:00)
--- NOTE | 2020-10-12 08:10 | NUR ---
GPS RN NOTE PATIENTS BLOOD SUGAR IS 138, ACCORDING TO SLING SCALE 2 UNITS OF INSULIN IS DUE, PATIENT REFUSED, EDUCATED RISK, PATIENT STILL KEPT ON REFUSING.
[2020-10-12] MEDS: BENZTROPINE MESYLATE (1 MG) 1 MG TABLET PO SCH ×2 (08:40→16:37)
[2020-10-12] MEDS: HALOPERIDOL LACTATE 10 MG/5 ML UDC PO SCH ×3 (08:40→21:17)
[2020-10-12] MEDS: OXCARBAZEPINE 150 MG TABLET PO SCH ×3 (08:40→16:37)
--- NOTE | 2020-10-12 12:05 | NUR ---
GPS RN NOTE PATIENTS BLOOD SUGAR IS 151, ACCORDING TO SLIDING SCALE INSULIN IS DUE, PATIENT KEPT OF REFUSING INSULIN, EDUCATED PATIENT REGARDING BENEFITS, PATIENT KEPT ON REFUSING AGAIN.
[2020-10-12 16:03] VITALS: BP 139/69
[2020-10-12] MEDS: MAGNESIUM HYDROXIDE 30 ML UDC PO PRN (16:38)
[2020-10-12] MEDS: INSULIN REGULAR, HUMAN 100 UNIT/ML 3 ML VIAL SQ PRN ×2 (17:19→21:36)
[2020-10-12 21:01] VITALS: BP 129/59
[2020-10-13] MEDS: BLOOD SUGAR DIAGNOSTIC 1 EACH STRIP IN SCH ×4 (07:30→21:23)
[2020-10-13 08:00] VITALS: BP 147/91
[2020-10-13] MEDS: OXCARBAZEPINE 150 MG TABLET PO SCH ×3 (09:00→16:51)
[2020-10-13] MEDS: BENZTROPINE MESYLATE (1 MG) 1 MG TABLET PO SCH ×2 (09:09→16:51)
[2020-10-13] MEDS: HALOPERIDOL LACTATE 10 MG/5 ML UDC PO SCH ×3 (09:10→21:23)
--- NOTE | 2020-10-13 11:22 | NUR ---
RN-CO: BLOOD SUGAR AC LUNCH WAS 163, PT REFUSED COVERAGE.
[2020-10-13] MEDS: MAGNESIUM HYDROXIDE 30 ML UDC PO PRN ×2 (12:09→23:19)
[2020-10-13 16:00] VITALS: BP 126/78
[2020-10-13] MEDS: INSULIN REGULAR, HUMAN 100 UNIT/ML 3 ML VIAL SQ PRN ×2 (17:10→21:28)
[2020-10-13 20:00] VITALS: BP 156/78
[2020-10-14] MEDS: BLOOD SUGAR DIAGNOSTIC 1 EACH STRIP IN SCH ×4 (07:50→21:29)
[2020-10-14 08:00] VITALS: BP 132/57
[2020-10-14] MEDS: BENZTROPINE MESYLATE (1 MG) 1 MG TABLET PO SCH ×2 (08:29→17:18)
[2020-10-14] MEDS: HALOPERIDOL LACTATE 10 MG/5 ML UDC PO SCH ×3 (08:29→21:28)
[2020-10-14] MEDS: OXCARBAZEPINE 150 MG TABLET PO SCH ×3 (08:29→17:18)
[2020-10-14] MEDS: INSULIN REGULAR, HUMAN 100 UNIT/ML 3 ML VIAL SQ PRN ×2 (11:45→21:32)
[2020-10-14 16:00] VITALS: BP 126/52
[2020-10-14] MEDS: MAGNESIUM HYDROXIDE 30 ML UDC PO PRN (18:14)
[2020-10-14 20:00] VITALS: BP 132/70
[2020-10-15] MEDS: BLOOD SUGAR DIAGNOSTIC 1 EACH STRIP IN SCH ×4 (07:30→21:19)
[2020-10-15 08:00] VITALS: BP 127/74
[2020-10-15] MEDS: BENZTROPINE MESYLATE (1 MG) 1 MG TABLET PO SCH ×2 (08:37→16:53)
[2020-10-15] MEDS: OXCARBAZEPINE 150 MG TABLET PO SCH ×3 (08:37→16:53)
[2020-10-15] MEDS: HALOPERIDOL LACTATE 10 MG/5 ML UDC PO SCH ×3 (08:37→21:16)
--- NOTE | 2020-10-15 11:08 | NUR ---
GPS BUTTON FACING MACHINE OPERATOR: MD VISIT SEEN BY DR. PALACIOS AT THIS TIME WITH ORDER. ORDER ACKNOWLEDGED.
--- NOTE | 2020-10-15 13:30 | NUR ---
SNF Contact: SW contacted CJ ([phone]) from [facility] and informed him that the pt is ready to be discharged the following day. CJ requested that the SW send updated notes.
--- NOTE | 2020-10-15 13:30 | NUR ---
SNF Contact: SANIYA faxed updated notes to [facility] with attn to CJ to the fax number: [phone].
[2020-10-15 16:00] VITALS: BP 107/53
[2020-10-15] MEDS: METFORMIN 500 MG TABLET PO SCH (16:53)
[2020-10-15] MEDS: MAGNESIUM HYDROXIDE 30 ML UDC PO PRN (17:44)
[2020-10-15 20:00] VITALS: BP 153/85
--- NOTE | 2020-10-16 07:30 | NUR ---
RECEIVED PT. THIS AM.VS STABLE. NO ACUTE DISTRESS.QUIET,WALKING ABOUT FROM TIME TO TIME IN HALLWAY AND THEN GOING TO DINING RM.DC FOR TODAY.
[2020-10-16 08:00] VITALS: BP 143/79
[2020-10-16] MEDS: BLOOD SUGAR DIAGNOSTIC 1 EACH STRIP IN SCH ×2 (08:45→12:01)
[2020-10-16] MEDS: BENZTROPINE MESYLATE (1 MG) 1 MG TABLET PO SCH (08:53)
[2020-10-16] MEDS: METFORMIN 500 MG TABLET PO SCH (08:53)
[2020-10-16] MEDS: HALOPERIDOL LACTATE 10 MG/5 ML UDC PO SCH (08:54)
[2020-10-16] MEDS: OXCARBAZEPINE 150 MG TABLET PO SCH ×2 (08:59→13:42)
--- NOTE | 2020-10-16 10:00 | NUR ---
COVID TEST DONE AND SENT TO LAB.
--- NOTE | 2020-10-16 10:37 | NUR ---
Discharge Note: Pt will be discharged to [facility] ([facility]) located at [address] [place] [address]; ([phone]). Pt will be transported via [facility] at 12PM. does not have anyone to inform about the pts discharge. Upon discharge, the pt appears to be in a euthymic mood and presented with a congruent affect. Pt appears to be alert and oriented x4 (time, place, self and situation). Pt denies both suicidal and homicidal ideation. Pt appears to respond to internal stimuli and have auditory hallucinations. Pt appears to be ambulatory with an unsteady gait. Pt appears to be well groomed and appropriately dressed. Pt will continue to be under the care of psychiatrist, Dr. Valencia, located at located at [address] [address], [place] [address]; . Pt will be under the care of molecular biology professor, Dr. Cox, located at [address] [place] [address]; . Pt signed the choice of vendor form and multidisciplinary exit care form were done, printed, signed, and given to the patient.
[2020-10-16] MEDS: MAGNESIUM HYDROXIDE 30 ML UDC PO PRN (11:25)
--- NOTE | 2020-10-16 13:38 | NUR ---
given mom over concern with constipation.
--- NOTE | 2020-10-16 14:00 | NUR ---
REPORT CALLED TO FACILITY. ALL PAPERWORK SIGNED,HAS BELONGINGS. DENIES S/I,H/I NO AUDITORY HALLUCINATIONS..REPORT GIVEN TO DRIVERS.TAKEN TO FACILITY VIA AMB.
== END 2020-10-16 14:45 | DRG 885 ==
LOC: ER 11:58 → GPS 17:21
PROVIDERS: ADMIT Psychiatry & Neurology Psychosomatic Medicine; ATTEND Nurse Practitioner Acute Care
DX: F25.9 Schizoaffective disorder, unspecified (principal); F29 Unspecified psychosis not due to a substance or known physiological condition; E11.9 Type 2 diabetes mellitus without complications; E86.0 Dehydration; I10 Essential (primary) hypertension; F17.210 Nicotine dependence, cigarettes, uncomplicated; F31.9 Bipolar disorder, unspecified; F60.9 Personality disorder, unspecified; Z91.19 Patient's noncompliance with other medical treatment and regimen; F15.11 Other stimulant abuse, in remission; Z88.0 Allergy status to penicillin; Z20.822 Contact with and (suspected) exposure to COVID-19; Z79.84 Long term (current) use of oral hypoglycemic drugs
CPT/HCPCS: 36415; 80048-TC; 80076-TC; 82962-TC; 85025-TC; 87081-TC; C9803; G0480; J1815